=== PATIENT | male | born 1930 | race Caucasian/White ===

== ENCOUNTER → 2017-06-16 | Outpatient (CLI) | payer OTHER | END | disposition home or self-care (01) | LOC: CDC 10:53 | DX: I44.7 Left bundle-branch block, unspecified (principal); R94.31 Abnormal electrocardiogram [ECG] [EKG] | CPT/HCPCS: 93000 ==

== ENCOUNTER 2017-06-24 07:18 | Day surgery (SDC) | payer OTHER ==
[~2017-06-24] VITALS: Ht 167.6 cm; Wt 65.7 kg
[~2017-06-24 07:18] MED LIST: ASCORBIC ACID500 M3 PO; ASPIR 8181 M1 PO; BREO ELLIPTA 21 EACH IH; CARDURA8 MG PO; LISINOPRIL10 MG PO; SPIRIVA RESPIMAT4 GM IH; VENTOLIN HFA18 GM IH; VITAMIN D35000 UNIT PO
[2017-06-24 07:39] VITALS: BP 176/100
[2017-06-24] MEDS ORDERED: NORCO 5/3251 TABLET PO (10:29)
[2017-06-24 11:18] VITALS: BP 160/76
[2017-06-24 12:11] VITALS: BP 147/67
[2017-06-24 13:12] VITALS: BP 184/84
== END 2017-06-24 13:20 | disposition home or self-care (01) ==
LOC: SDC 07:18
DX: K40.90 Unilateral inguinal hernia, without obstruction or gangrene, not specified as recurrent (principal); D17.6 Benign lipomatous neoplasm of spermatic cord; J44.9 Chronic obstructive pulmonary disease, unspecified; I10 Essential (primary) hypertension; Z87.891 Personal history of nicotine dependence; Z79.82 Long term (current) use of aspirin
CPT/HCPCS: J0131; J0330; J0690; J1100; J2405; J2710; J3010; J7643

== ENCOUNTER 2017-06-28 09:48 | Observation (INO) | payer OTHER ==
[~2017-06-28] VITALS: Ht 167.6 cm; Wt 65.9 kg
[~2017-06-28 09:48] MED LIST changes: +NORCO 5/3251 TABLET PO
[2017-06-28 10:31] LABS: BASOPHIL (%) 0.4 % (0-1); BASOPHIL COUNT 0.1 K/uL (0-0.1); EOSINOPHIL (%) 1.2 % (0-5); EOSINOPHIL COUNT 0.2 K/uL (0-0.3); HEMATOCRIT 43.7 % (38.0-50.0); HEMOGLOBIN 15.3 G/DL (12.5-16.6); IMMATURE GRANULOCYTE (%) 0.7 % (0.0-0.7); LYMPHOCYTE (%) 12.3 % (15-42); LYMPHOCYTE COUNT 1.9 K/uL (1.0-2.8); MCH 30.6 PG (29.0-34.0); MCV 87.4 FL (86-99); MONOCYTE (%) 5.8 % (3-12); MONOCYTE COUNT 0.9 K/uL (0-0.8); NEUTROPHIL (%) 79.6 % (45-76); PLATELET COUNT 250 K/uL (156-360); RBC DIS.WIDTH-CV 12.4 % (11.8-14.6); RBC DIS.WIDTH-SD 39.8 % (39-53)
[2017-06-28 10:36] LABS: INTER. NORMALIZED RATIO 1.1
[2017-06-28 10:38] LABS: PTT 29.3 SEC (25-37)
[2017-06-28 10:40] LABS: CHLORIDE 105 mEq/L (99-109); POTASSIUM 4.4 mEq/L (3.7-5.4); SODIUM 141 mEq/L (136-147)
[2017-06-28 10:42] LABS: GLUCOSE 103 mg/dL (70-99)
[2017-06-28 10:46] LABS: CREATININE 2.2 mg/dL (0.6-1.3); GFR ESTIMATE (CALCULATED) 30 mL/min/ (58.99-99999)
[2017-06-28 10:47] LABS: UREA NITROGEN (BUN) 27 mg/dL (9-23)
[2017-06-28 10:50] LABS: TROP-I INTERPRETATION NEGATIVE; TROPONIN-I 0.02 ng/mL (0.0-0.30)
[2017-06-28 14:45] VITALS: BP 131/78
[2017-06-28 17:07] LABS: TROP-I INTERPRETATION NEGATIVE; TROPONIN-I 0.02 ng/mL (0.0-0.30)
[2017-06-28 19:28] VITALS: BP 125/75
[2017-06-28 22:33] LABS: APPEARANCE CLEAR ((CLEAR)); BILIRUBIN NEGATIVE; BLOOD NEGATIVE; COLOR YELLOW ((YELLOW)); GLUCOSE (STRIP) NEGATIVE; KETONES NEGATIVE; LEUKOCYTES NEGATIVE; NITRITE NEGATIVE; PROTEIN (STRIP) NEGATIVE; SPECIFIC GRAVITY 1.012 (1.000-1.030); UCUL ADDED? NO; UROBILINOGEN 0.2 MG/DL (0.2-1.0)
[2017-06-28 23:05] LABS: TROP-I INTERPRETATION NEGATIVE; TROPONIN-I 0.01 ng/mL (0.0-0.30)
[2017-06-28 23:17] VITALS: BP 147/81
[2017-06-29 03:41] VITALS: BP 152/75
[2017-06-29 07:05] VITALS: BP 132/74
[2017-06-29 07:22] LABS: CHLORIDE 105 MEQ/L (99-109); GFR ESTIMATE (CALCULATED) 34 mL/min/ (58.99-99999); GLUCOSE 97 mg/dL (70-99); POTASSIUM 4.1 MEQ/L (3.7-5.4); SODIUM 138 MEQ/L (136-147); UREA NITROGEN (BUN) 30 mg/dL (9-23)
[2017-06-29 07:25] LABS: HEMATOCRIT 36.9 % (38.0-50.0); MCH 29.8 PG (29.0-34.0); MCHC 34.4 G/DL (30.0-36.0); MCV 86.6 FL (86-99); PLATELET COUNT 217 K/uL (156-360); RBC DIS.WIDTH-CV 12.1 % (11.8-14.6); RBC DIS.WIDTH-SD 38.5 % (39-53); RED BLOOD COUNT 4.26 M/uL (4.00-5.50); WHITE BLOOD COUNT 12.3 K/uL (4.1-10.2)
[2017-06-29 07:46] LABS: HEMOGLOBIN 12.7 G/DL (12.5-16.6)
== END 2017-06-29 15:25 | disposition home or self-care (01) ==
LOC: EME 09:48 → 5WEST 12:54 → EDOF 12:54 → ENRESERV 12:55 → 5WEST 14:22
PROVIDERS: Emergency Medicine; Internal Medicine
DX: R07.9 Chest pain, unspecified (principal); J44.9 Chronic obstructive pulmonary disease, unspecified; D68.9 Coagulation defect, unspecified; D72.829 Elevated white blood cell count, unspecified; E78.5 Hyperlipidemia, unspecified; I12.9 Hypertensive chronic kidney disease with stage 1 through stage 4 chronic kidney disease, or unspecified chronic kidney disease; N18.4 Chronic kidney disease, stage 4 (severe); Z98.890 Other specified postprocedural states; I44.7 Left bundle-branch block, unspecified; Z87.891 Personal history of nicotine dependence; Z82.49 Family history of ischemic heart disease and other diseases of the circulatory system; Z88.8 Allergy status to other drugs, medicaments and biological substances
CPT/HCPCS: 71045; 78582; 80048; 81003; 84484; 85025; 85027; 85379; 85610; 85730; 93005; 94640; 99202; 99281; 99284; A9539; A9540; G0378; J1644